=== PATIENT | male | born 1980 | race Two or more races ===

== ENCOUNTER 2020-12-31 16:26 | Emergency (ER) | payer OTHER ==
[~2020-12-31] VITALS: Ht 165.1 cm; Wt 110.2 kg
[2020-12-31] MEDS ORDERED: GLUMETZA1000 MG (16:56)
[2020-12-31] MEDS ORDERED: CAPSAICIN42.5 GM TOP ×2 (19:27→19:29)
[2020-12-31] MEDS ORDERED: BENADRYL ALLERG25 MG PO (19:28)
[2020-12-31] MEDS ORDERED: MEDROLPACK PO ×2 (19:28→19:29)
== END 2020-12-31 20:02 | disposition home or self-care (01) ==
LOC: ER 16:26
DX: L27.2 Dermatitis due to ingested food (principal); E11.9 Type 2 diabetes mellitus without complications

== ENCOUNTER 2021-01-07 10:01 | Outpatient (CLI) | payer OTHER ==
[~2021-01-07 10:01] MED LIST: BENADRYL ALLERG25 MG PO; CAPSAICIN42.5 GM TOP; GLUMETZA1000 MG; MEDROLPACK PO
== END 2021-01-07 10:03 | disposition home or self-care (01) ==
LOC: LAB 10:01
PROVIDERS: ATTEND General Practice
DX: M77.02 Medial epicondylitis, left elbow (principal); Z68.39 Body mass index [BMI] 39.0-39.9, adult

== ENCOUNTER 2021-01-10 09:26 | Outpatient (CLI) | payer OTHER | END 2021-01-10 09:31 | disposition home or self-care (01) | LOC: LAB 09:26 | PROVIDERS: ATTEND General Practice | DX: M77.02 Medial epicondylitis, left elbow (principal); E11.69 Type 2 diabetes mellitus with other specified complication; E78.2 Mixed hyperlipidemia; E66.01 Morbid (severe) obesity due to excess calories; Z68.38 Body mass index [BMI] 38.0-38.9, adult; R97.8 Other abnormal tumor markers ==

== ENCOUNTER 2021-02-05 09:17 | Outpatient (CLI) | payer OTHER | END 2021-02-05 09:18 | disposition home or self-care (01) | LOC: LAB 09:17 | DX: Z00.00 Encounter for general adult medical examination without abnormal findings (principal) ==

== ENCOUNTER 2021-03-03 08:18 | Emergency (ER) | payer OTHER ==
[~2021-03-03] VITALS: Ht 165.1 cm; Wt 112.9 kg
[2021-03-03] MEDS ORDERED: GLIPIZIDE XL5 MG PO (08:31)
[2021-03-03] MEDS ORDERED: GLUMETZA500 MG (08:31)
[2021-03-03] MEDS ORDERED: ZESTRIL2.5 MG PO (08:32)
== END 2021-03-03 10:11 | disposition home or self-care (01) ==
LOC: ER 08:18
DX: U07.1 COVID-19 (principal); E11.9 Type 2 diabetes mellitus without complications; I10 Essential (primary) hypertension; Z79.84 Long term (current) use of oral hypoglycemic drugs

== ENCOUNTER 2021-03-21 11:19 | Outpatient (CLI) | payer OTHER ==
[~2021-03-21 11:19] MED LIST changes: +GLIPIZIDE XL5 MG PO; +GLUMETZA500 MG; +ZESTRIL2.5 MG PO
== END 2021-03-21 11:25 | disposition home or self-care (01) ==
LOC: LAB 11:19
DX: E11.9 Type 2 diabetes mellitus without complications (principal); D51.1 Vitamin B12 deficiency anemia due to selective vitamin B12 malabsorption with proteinuria; E55.9 Vitamin D deficiency, unspecified; K92.1 Melena; N40.0 Benign prostatic hyperplasia without lower urinary tract symptoms; P59.8 Neonatal jaundice from other specified causes

== ENCOUNTER 2021-03-21 12:35 | Outpatient (CLI) | payer OTHER | END 2021-03-21 12:44 | disposition home or self-care (01) | LOC: RAD 12:35 | DX: M25.522 Pain in left elbow (principal) ==

== ENCOUNTER 2021-03-26 08:40 | Outpatient (CLI) | payer OTHER | END 2021-03-26 08:53 | disposition home or self-care (01) | LOC: TOM 08:40 | PROVIDERS: ATTEND Surgery | DX: K43.6 Other and unspecified ventral hernia with obstruction, without gangrene (principal) ==

== ENCOUNTER 2021-03-26 10:21 | Outpatient (CLI) | payer OTHER | END 2021-03-26 10:26 | disposition home or self-care (01) | LOC: LAB 10:21 | DX: K92.1 Melena (principal) ==